=== PATIENT | female | born 1990 | race Hispanic/Latino ===

== ENCOUNTER 2020-03-07 22:53 | Emergency (ER) | payer OTHER ==
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
[2020-03-08] MEDS ORDERED: MORPHINE 4 MG/ML SYR ONE (00:03)
[2020-03-08] MEDS ORDERED: ONDANSETRON 4 MG/2 ML VIAL ONE (00:03)
[2020-03-08] MEDS ORDERED: HYDROCODONE/APAP 5/325 MG TAB ONE (00:03)
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
[2020-03-08 01:51] VITALS: TEMP 98.1
[2020-03-08 01:52] VITALS: BP 108/62; O2SAT 95
--- NOTE | 2020-03-08 12:47 | RAD REPORT ---
EXAM DESCRIPTION: RAD - Chest Pa And Lat (2 Views) - 03/08/2020 12:31 am CLINICAL HISTORY: 29 years Female, recent pneumothorax, left clavicle fracture, right rib fract COMPARISON: None. FINDINGS: Small amount of hazy opacity in both lung bases is present. No pneumothorax. There is a sm all right pleural effusion. Cardiomediastinal silhouette is unremarkable. Multiple right-sided rib fractures are demonstrated involving at least ribs one through seven with se veral appearing displaced. There is a subtle acute appearing fracture of the lateral left clavicle. IMPRESSION: 1. No evidence of pneumothorax. 2. Small right pleural effusion. 3. Small amount of hazy opacity in both lung bases which may reflect atelectasis with underlying cont usion or pneumonia not excluded. 4. Multiple right-sided rib fractures and left clavicular fracture. Electronically signed by: Javier Jordan MD 03/08/2020 1:12 AM FISH ICER Due to temporary technical issues with the PACS/Fluency reporting system, reports are being signed by the in house radiologist without review as a courtesy to ensure prompt reporting. The interpreting r adiologist is fully responsible for the content of the report.
== END 2020-03-08 01:46 | disposition home or self-care (01) ==
LOC: ER 22:53
DX: S22.41XA Multiple fractures of ribs, right side, initial encounter for closed fracture (principal); S42.002A Fracture of unspecified part of left clavicle, initial encounter for closed fracture; S32.9XXA Fracture of unspecified parts of lumbosacral spine and pelvis, initial encounter for closed fracture; S27.0XXA Traumatic pneumothorax, initial encounter; X58.XXXA Exposure to other specified factors, initial encounter
CPT/HCPCS: 71046; 96374; 96375; 99284

== ENCOUNTER 2020-03-16 23:31 | Emergency (ER) | payer OTHER, SELFPAY ==
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
[2020-03-17] MEDS ORDERED: METHYLPREDNISOLONE 125 MG INJ ONE (00:21)
[2020-03-17] MEDS ORDERED: ALBUTEROL 2.5 MG/3 ML NEB SOL ONE (00:21)
[2020-03-17] MEDS ORDERED: IPRATROPIUM BROM 0.5MG/2.5ML ONE (00:21)
[2020-03-17 00:40] LABS: Urine Blood NEGATIVE (NEG); Urine Glucose NEGATIVE (NEG); Urine Protein NEGATIVE (NEG)
[2020-03-17 00:48] LABS: Absolute Lymphocytes (CBC) 3.5 K/uL (0.7-4.9); Basophils % 0.3 % (0-1.3); Hematocrit 36.4 % (36.0-45.0); Lymphocytes % 24.4 % (15.3-44.8); MPV 7.3 fL (7.6-11.3); RBC Red Blood Cell Count 3.97 M/uL (3.86-4.86)
[2020-03-17] MEDS ORDERED: NA CHLORIDE 0.9% 1,000 ML ONE (00:52)
[2020-03-17 01:05] LABS: ALT/SGPT 70 U/L (12-78); AST/SGOT 87 U/L (15-37); Alkaline Phosphatase 199 U/L (45-117); BUN Blood Urea Nitrogen 6 mg/dL (7-18); Bicarbonate 21 mmol/L (21-32); Bilirubin Direct 0.2 mg/dL (0-0.2); Bilirubin Total 0.4 mg/dL (0.2-1.0); Glucose Level 115 mg/dL (74-106); Potassium 3.9 mmol/L (3.5-5.1); Sodium Level 140 mmol/L (136-145)
[2020-03-17 01:09] LABS: Urine Bacteria 20-50 /HPF (<20); Urine Mucus 1+ /HPF (NONE SEEN); Urine RBC <5 /HPF (NONE SEEN)
[2020-03-17] MEDS ORDERED: KETOROLAC 30 MG/ML INJ ONE (01:52)
[2020-03-17] MEDS ORDERED: ONDANSETRON 4 MG/2 ML VIAL ONE (04:37)
[2020-03-17] MEDS ORDERED: MORPHINE 4 MG/ML SYR ONE (04:37)
--- NOTE | 2020-03-17 05:08 | EDPHYS ---
Physician Documentation [facility] Name: Chrissy Rod Age: 29 yrs Sex: Female : 1990 Arrival Date: 03/16/2020 Time: 23:34 Bed 6 Private MD: ED Physician Marcos Gallagher HPI: 03/17 00:03 This 29 yrs old Female presents to ER via Wheelchair with complaints of Asthma mh7 Exacerbation. 00:03 The patient presents to the emergency department with wheezing, Current therapy: None, mh7 that began without any particular precipitating event, the patient was reported to have audible wheezing, SOB, Pre-hospital care: none, Ran out of inhaler. Onset: The symptoms/episode began/occurred today, 4 hour(s) ago. Modifying factors: The symptoms are alleviated by nothing, the symptoms are aggravated by nothing. Associated signs and symptoms: Pertinent negatives: chest pain, choking, fever, headache, nausea, palpitations, rash, vomiting. Severity of symptoms: At their worst the symptoms were moderate today, in the emergency department the symptoms are unchanged. The patient has experienced similar episodes in the past, multiple times. The patient has been recently seen at the [facility], last week. 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 - Social history:: Smoking status: Patient denies any tobacco usage or history of. ROS: 00:03 Constitutional: Negative for fever, chills, and weight loss, Eyes: Negative for injury, mh7 pain, redness, and discharge. 00:03 Neck: Negative for injury, pain, and swelling, Cardiovascular: Negative for chest pain, palpitations, and edema, Abdomen/GI: Negative for abdominal pain, nausea, vomiting, diarrhea, and constipation, Back: Negative for injury and pain, : Negative for injury, bleeding, discharge, and swelling, MS/Extremity: Negative for injury and deformity, Skin: Negative for injury, rash, and discoloration, Neuro: Negative for headache, weakness, numbness, tingling, and seizure, Psych: Negative for depression, anxiety, suicide ideation, homicidal ideation, and hallucinations, Allergy/Immunology: Negative for hives, rash, and allergies, Endocrine: Negative for neck swelling, polydipsia, polyuria, polyphagia, and marked weight changes, Hematologic/Lymphatic: Negative for swollen nodes, abnormal bleeding, and unusual bruising. 00:03 ENT: Positive for rhinorrhea. Exam: 00:03 Head/Face: Normocephalic, atraumatic. Eyes: Pupils equal round and reactive to light, mh7 extra-ocular motions intact. Lids and lashes normal. Conjunctiva and sclera are non-icteric and not injected. Cornea within normal limits. Periorbital areas with no swelling, redness, or edema. Neck: Trachea midline, no thyromegaly or masses palpated, and no cervical lymphadenopathy. Supple, full range of motion without nuchal rigidity, or vertebral point tenderness. No Meningismus. Chest/axilla: Normal chest wall appearance and motion. Nontender with no deformity. No lesions are appreciated. 00:03 Abdomen/GI: Soft, non-tender, with normal bowel sounds. No distension or tympany. No guarding or rebound. No evidence of tenderness throughout. Back: No spinal tenderness. No costovertebral tenderness. Full range of motion. Skin: Warm, dry with normal turgor. Normal color with no rashes, no lesions, and no evidence of cellulitis. MS/ Extremity: Pulses equal, no cyanosis. Neurovascular intact. Full, normal range of motion. Neuro: Awake and alert, GCS 15, oriented to person, place, time, and situation. Cranial nerves II-XII grossly intact. Motor strength 5/5 in all extremities. Sensory grossly intact. Cerebellar exam normal. Normal gait. Psych: Awake, alert, with orientation to person, place and time. Behavior, mood, and affect are within normal limits. 00:03 Constitutional: The patient appears in no acute distress, alert, awake, uncomfortable. 00:03 Cardiovascular: Rate: tachycardic, Rhythm: regular, Pulses: no pulse deficits are appreciated, Heart sounds: normal, normal S1and S2, Edema: is not appreciated, JVD: is not appreciated. 00:03 Respiratory: the patient does not display signs of respiratory distress, Respirations: prolonged exhalation, that is mild, Breath sounds: rhonchi, that are mild, are scattered, wheezing: expiratory that is mild, is scattered, Respiratory rate: 20 Vital Signs: 03/16 23:59 BP 126 / 81; Pulse 136; Resp 20; Temp 99.1(O); Pulse Ox 98% on R/A; Weight 81.65 kg lp1 (R); Height 5 ft. 0 in. (152.40 cm); 03/17 01:00 BP 126 / 89; Pulse 130; Resp 20; Pulse Ox 95% ; rr5 01:41 BP 121 / 66; Pulse 122; Resp 19; Pulse Ox 92% ; rr5 02:35 BP 101 / 58; Pulse 115; Resp 16; Pulse Ox 99% ; rr5 03:30 BP 115 / 62; Pulse 118; Resp 15; Pulse Ox 98% on R/A; rr5 04:30 BP 119 / 78; Pulse 120; Resp 17; Pulse Ox 98% ; rr5 05:22 BP 122 / 75; Pulse 111; Resp 15; Pulse Ox 98% ; rr5 03/16 23:59 Body Mass Index 35.15 (81.65 kg, 152.40 cm) lp1 MDM: 05:05 Differential diagnosis: acute asthma, exercise-induced asthma, reactive airway. Data [facility] reviewed: vital signs, nurses notes, old medical records, lab test result(s), CBC, electrolytes, urinalysis, EKG, radiologic studies, CT scan, plain films. Data interpreted: Pulse oximetry: on room air is 98 %. Interpretation: normal. Counseling: I had a detailed discussion with the patient and/or guardian regarding: the historical points, exam findings, and any diagnostic results supporting the discharge/admit diagnosis, lab results, radiology results, the need for outpatient follow up, to return to the emergency department if symptoms worsen or persist or if there are any questions or concerns that arise at home. Response to treatment: the patient's symptoms have resolved after treatment, the patient's blood pressure is in an acceptable range, mental status has returned to baseline, the patient no longer shows bradycardia, the patient is not short of breath, the patient is not tachycardic, the patient's pain is gone, the patient's temperature has normalized. 05:08 Patient medically screened. mh7 03/17 00:00 Order name: CBC with Diff; Complete Time: 01:03 [facility] 03/17 00:00 Order name: Basic Metabolic Panel; Complete Time: 01:34 [facility] 03/17 00:00 Order name: LFT's; Complete Time: 01:34 [facility] 03/17 00:00 Order name: Influenza Screen (a \T\ B); Complete Time: 01:34 [facility] 03/17 00:34 Order name: Urine Microscopic Only; Complete Time: 01:34 [facility] 03/17 00:34 Order name: Urine Dipstick--Ancillary (enter results); Complete Time: 01:03 [facility] 03/17 00:00 Order name: Chest Single View XRAY [facility] 03/17 00:34 Order name: Urine --Ancillary (enter results); Complete Time: 01:03 [facility] 03/17 01:10 Order name: Urine Culture [facility] 03/17 01:34 Order name: UDS [facility] 03/17 02:20 Order name: D-Dimer; Complete Time: 02:59 [facility] 03/17 03:00 Order name: CT Chest For PE Angio [facility] 03/17 00:00 Order name: Urine Dipstick-Ancillary (obtain specimen); Complete Time: 00:33 [facility] 03/17 00:00 Order name: Urine Test (obtain specimen); Complete Time: 00:33 [facility] 03/17 00:00 Order name: Saline Lock; Complete Time: 00:34 [facility] 03/17 02:20 Order name: EKG - Nurse/Tech; Complete Time: 02:34 7 Administered Medications: 00:42 Drug: SOLU-Medrol 125 mg Route: IVP; Site: left forearm; rr5 01:40 Follow up: Response: No adverse reaction rr5 00:43 Drug: Albuterol - atroVENT (3:1) (2.5 mg - 0.5 mg) 3 ml Route: Nebulizer; rr5 01:40 Follow up: Response: No adverse reaction rr5 00:43 Drug: NS 0.9% 1000 ml Route: IV; Rate: 1000 ml; Site: left forearm; rr5 02:05 Follow up: Response: No adverse reaction; IV Status: Completed infusion; IV Intake: rr5 1000ml 01:39 Drug: TORadol 30 mg Route: IVP; Site: left forearm; rr5 02:30 Follow up: Response: No adverse reaction; Marked relief of symptoms; Pain is decreased rr5 04:23 Drug: Zofran (Ondansetron) 4 mg Route: IVP; Site: left forearm; rr5 05:22 Follow up: Response: No adverse reaction rr5 04:25 Drug: morphine 4 mg {Note: rass 0.} Route: IVP; Site: left forearm; rr5 05:20 Follow up: Response: No adverse reaction; Pain is decreased; RASS: Alert and Calm (0) rr5 Disposition: 03/17/20 05:08 Discharged to Home. Impression: Asthma Exacerbation, Rib Fractures. - Condition is Stable. - Discharge Instructions: Asthma, Adult, [id number], Rib Fracture, [id number]. - Prescriptions for Prednisone 20 mg Oral Tablet - take 2 tablet by ORAL route once daily for 5 days; 10 tablet. Albuterol Sulfate 90 mcg/actuation - inhale 1-2 puff by INHALATION route every 4-6 hours; 1 Inhaler. - Medication Reconciliation Form, Thank You Letter, Antibiotic Education, Prescription Opioid Use form. - Follow up: Private Physician; When: 1 - 2 days; Reason: Worsening of condition, Recheck today's complaints, Continuance of care, Re-evaluation by your physician. Follow up: Tl Tejeda MD; When: 1 - 2 days; Reason: Worsening of condition, Recheck today's complaints. - Problem is an acute exacerbation. - Symptoms have improved. Signatures: Dispatcher [employer] EDMS Daisy Saldivar RN RN lp1 Eduardo Serrano RN RN rr5 Marcos Gallagher MD MD 7 Corrections: (The following items were deleted from the chart) 05:23 05:08 03/17/2020 05:08 Discharged to Home. Impression: Asthma Exacerbation; Rib rr5 Fractures. Condition is Stable. Forms are Medication Reconciliation Form, Thank You Letter, Antibiotic Education, Prescription Opioid Use. Follow up: Private Physician; When: 1 - 2 days; Reason: Worsening of condition, Recheck today's complaints, Continuance of care, Re-evaluation by your physician. Follow up: Tl Tejeda; When: 1 - 2 days; Reason: Worsening of condition, Recheck today's complaints. Problem is an acute exacerbation. Symptoms have improved. mh7
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
[2020-03-17 05:36] VITALS: TEMP 99.1
[2020-03-17 05:41] VITALS: O2SAT 98
[2020-03-17 05:44] VITALS: BP 122/75
--- NOTE | 2020-03-17 17:27 | RAD REPORT ---
EXAM DESCRIPTION: RAD - Chest Single View - 03/17/2020 1:03 am CLINICAL HISTORY: SOB COMPARISON: 03/08/2020 FINDINGS: Single frontal radiograph view of the chest. Cardiomediastinal silhouette: Normal size and contour. Lungs: Patchy right basilar opacities. No pneumothorax. Bones: Redemonstrated distal left clavicular fracture. Redemonstrated right rib fractures. Upper abdomen: No abnormality identified. IMPRESSION: 1. Persistent patchy right basilar opacity. No pneumothorax identified. 2. Redemonstrated right rib fractures and distal left clavicular fracture. Electronically signed by: Gerald Barros 03/17/2020 1:31 AM PANEL FLOW MACHINE OPERATOR Due to temporary technical issues with the PACS/Fluency reporting system, reports are being signed by the in house radiologists without review as a courtesy to insure prompt reporting. The interpreting radiologist is fully responsible for the content of the report.
--- NOTE | 2020-03-17 17:29 | RAD REPORT ---
EXAM DESCRIPTION: CT - Chest For Pe Angio - 03/17/2020 6:40 am CLINICAL HISTORY: SOB COMPARISON: None Available. TECHNIQUE: CTA of the chest obtained following the uncomplicated intravenous administration of iodin ated contrast. 3-D/MIP reformatted images of the chest available for evaluation. FINDINGS: Chest: Pulmonary arteries: Contrast bolus is adequate.No filling defects identified in the pulmonary arterie s to suggest pulmonary embolus. Respiratory motion artifact. Suboptimal evaluation of the segmental a nd subsegmental pulmonary arterial branches due to respiratory motion artifact. Thyroid: No abnormalities of the visualized thyroid. Great Vessels: Great vessels have normal anatomic configuration. Thoracic Aorta: No abnormalities of the thoracic aorta identified. Heart: No cardiomegaly, significant pericardial effusion, or coronary artery atherosclerosis Lymph Nodes: No enlarged mediastinal lymph nodes identified. Esophagus: No abnormalities of the esophagus identified. Other: No additional findings. Lungs: Minimal bilateral dependent atelectasis. Pleura: Rounded pleural-based opacities at the lateral aspect of the right lung likely representing a component of pulmonary contusion. Trachea/Airways: No abnormalities of the visualized trachea or airways. Bones: Fractures of the first through ninth right ribs. Fracture of the distal left clavicle no left rib fractures. The scapula are intact. No acute abnormality of the vertebral bodies. Upper Abdomen: Limited images of the upper abdomen demonstrate no definite abnormalities of visualize d portions of the gallbladder, pancreas, spleen, adrenal glands, or kidneys. Decreased density of t he liver. IMPRESSION: 1. No central pulmonary embolus identified. 2. Fractures of the right first through ninth ribs. 3. Lobulated rounded pleural-based opacities at the lateral aspect of the right lung are likely postt raumatic and may be related to contusion. Given rounded configuration follow-up CT in 6-12 weeks afte r resolution to exclude other causes of rounded pleural-based opacity. 4. Mild bilateral dependent atelectasis. 5. Nondisplaced distal left clavicle fracture partially visualized. 6. Hepatic steatosis. This exam was performed according to our departmental dose-optimization program, which includes autom ated exposure control, adjustment of the mA and/or kV according to patient size and/or use of iterati ve reconstruction technique. Electronically signed by: Gerald Barros 03/17/2020 4:09 AM MASONRY INSTRUCTOR Due to temporary technical issues with the PACS/Fluency reporting system, reports are being signed by the in house radiologists without review as a courtesy to insure prompt reporting. The interpreting radiologist is fully responsible for the content of the report.
== END 2020-03-17 05:23 | disposition home or self-care (01) ==
LOC: ER 23:31
DX: J45.901 Unspecified asthma with (acute) exacerbation (principal); S22.41XA Multiple fractures of ribs, right side, initial encounter for closed fracture
CPT/HCPCS: 36415; 71045; 71275; 80048; 80076; 81003; 81015; 81025; 85025; 85379; 87086; 87088; 87804; 93005; 96361; 96374; 96375; 99285; J2405; J2930; J7030

== ENCOUNTER 2023-06-02 12:15 | Emergency (ER) | payer OTHER, SELFPAY ==
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
[2023-06-02 13:01] LABS: Absolute Basophils 0.1 K/uL (0-0.5); Absolute Eosinophils 0.8 K/uL (0-0.5); Absolute Lymphocytes (CBC) 5.5 K/uL (0.7-4.9); Absolute Monocytes 0.6 K/uL (0.1-1.3); Basophils % 0.8 % (0-1.3); Eosinophils % 5.5 % (0-4.4); Hematocrit 33.9 % (36.0-45.0); Hemoglobin 10.9 g/dL (12.0-15.0); Lymphocytes % 39.6 % (15.3-44.8); MCH 28.4 pg (27.0-35.0); MCV 88.7 fL (80-100); MPV 7.9 fL (7.6-11.3); Neutrophils % 50.1 % (41.7-73.7); Platelets 502 thou/uL (152-406); RBC Red Blood Cell Count 3.83 M/uL (3.86-4.86); Red Cell Distribution Width 16.2 % (12.1-15.2)
[2023-06-02 13:23] LABS: ALT/SGPT 131 U/L (13-56); AST/SGOT 320 U/L (15-37); Albumin 3.5 g/dL (3.4-5.0); Albumin/Globulin Ratio 0.7 (1.1-1.8); Alkaline Phosphatase 182 U/L (45-117); Anion Gap 14.1 mEq/L (5.0-15.0); Bicarbonate 23 mEq/L (21-32); Bilirubin Direct 0.1 mg/dL (0-0.2); Bilirubin Indirect, Calculated 0.2 mg/dL (0.2-0.8); Bilirubin Total 0.3 mg/dL (0.2-1.0); Globulin 5.3 g/dL (2.3-3.5); Glomerular Filtration Rate 105 ml/min (=/>90); Glucose Level 176 mg/dL (74-106); Potassium 3.1 mEq/L (3.5-5.1); Protein, Total 8.8 g/dL (6.4-8.2); Sodium Level 139 mEq/L (136-145)
[2023-06-02 13:24] LABS: BUN Blood Urea Nitrogen < 3 mg/dL (7-18)
[2023-06-02 13:37] LABS: Barbiturates NEGATIVE (NEGATIVE); Benzodiazepines NEGATIVE (NEGATIVE); Cocaine NEGATIVE (NEGATIVE); METHAMPHETAM NEGATIVE (NEGATIVE); Methadone NEGATIVE (NEGATIVE); Opiates NEGATIVE (NEGATIVE); Phencyclidine NEGATIVE (NEGATIVE); THC Cannibis POSITIVE (NEGATIVE)
--- NOTE | 2023-06-02 14:11 | RAD REPORT ---
EXAM DESCRIPTION: Filomena Single View06/02/2023 1:51 pm CLINICAL HISTORY: hypoxia COMPARISON: 2020 FINDINGS: The lungs appear clear of acute infiltrate. The heart is normal size IMPRESSION: No acute abnormalities displayed
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
--- NOTE | 2023-06-02 16:15 | EDPHYS ---
Physician Documentation [facility] Name: Chrissy Rod Age: 32 yrs Sex: Female : 1990 Arrival Date: 06/02/2023 Time: 12:15 Bed 3 Private MD: ED Physician Thaddeus Grey HPI: 06/01 12:50 This 32 yrs old Female presents to ER via EMS with complaints of Fentanyl ms3 overdose. 12:50 32-year-old female with past medical history of asthma presents to the emergency id3 department via [facility] for fentanyl overdose. EMS was called as patient was vomiting after drinking beer. While EMS was in route patient became unresponsive and patient's friend did 2 minutes of CPR. On police arrival Narcan was administered with improvement of patient's respiratory status. On EMS arrival patient's oxygen saturation was 47% and 0.5 mg Narcan was administered. While obtaining IV access patient became alert and oriented. Patient states she snorted fentanyl for the first time. Patient is complaining of 8/10 chest pain. Patient denies any alleviating or inciting factors. Historical: - Allergies: 12:23 No Known Allergies; rs5 - PMHx: 12:23 Asthma; rs5 - PSHx: 12:23 None; rs5 - Immunization history:: Adult Immunizations up to date. - Infectious Disease History:: Denies. - Social history:: Smoking status: Patient denies any tobacco usage or history of. ROS: 12:50 Constitutional: Negative for fever, and chills. Neck: Negative for injury, pain, and ms3 swelling, 12:50 Abdomen/GI: Negative for abdominal pain, nausea, vomiting, diarrhea, and constipation, MS/Extremity: Negative for injury and deformity, Skin: Negative for injury, rash, and discoloration, 12:50 Cardiovascular: Positive for chest pain, Exam: 12:50 Constitutional: This is a well developed, well nourished patient who is awake, alert, ms3 and in no acute distress. Head/Face: Normocephalic, atraumatic. Neck: Trachea midline, no cervical lymphadenopathy. Supple, full range of motion without nuchal rigidity, or vertebral point tenderness. No Meningismus. Chest/axilla: Anterior chest tender to palpation Cardiovascular: Regular rate and rhythm with a normal S1 and S2. No gallops, murmurs, or rubs. Normal PMI, no JVD. No pulse deficits. Respiratory: Lungs have equal breath sounds bilaterally, clear to auscultation and percussion. No rales, rhonchi or wheezes noted. No increased work of breathing, no retractions or nasal flaring. Abdomen/GI: Soft, non-tender, with normal bowel sounds. No distension or tympany. No guarding or rebound. No evidence of tenderness throughout. 13:58 ECG was reviewed by the Attending Physician. ms3 Vital Signs: 12:19 BP 120 / 64; Pulse 70; Resp 17; Pulse Ox 96% on 4 lpm NC; rs5 12:35 BP 120 / 64; Pulse 84; Resp 18; Pulse Ox 98% on 2 lpm NC; Pain 0/10; ld2 14:26 BP 112 / 74; Pulse 110; Resp 18; Pulse Ox 98% on R/A; ph 15:14 BP 97 / 64; Pulse 109; Resp 18 S; Pulse Ox 96% on R/A; as6 16:25 BP 113 / 71; Pulse 90; Resp 19 S; Pulse Ox 99% on R/A; as6 12:35 Pain Scale: Adult ld2 [place] Coma Score: 12:35 Eye Response: spontaneous(4). Motor Response: obeys commands(6). Verbal Response: ld2 oriented(5). Total: 15. MDM: 12:20 Patient medically screened. ms3 12:50 Differential diagnosis: Ingestion/exposure to Fentanyl. ms3 16:18 Data reviewed: vital signs, nurses notes, lab test result(s), EKG, radiologic studies, ms3 and as a result, I will discharge patient. 16:19 Consideration of Admission/Observation Escalation of care including ms3 admission/observation considered. Discussed observation with patient and she declines observation at this time. Discussed with patient she may return at any time to continue her care.. Independent interpretation of the following test(s) in the Emergency Department X-Ray: My interpretation is CXR image reviewed does not reveal PNA or edema. 16:21 Historians other than the Patient: EMS: [facility]. Care significantly affected ms3 by the following chronic conditions: Asthma. Counseling: I had a detailed discussion with the patient and/or guardian regarding the historical points, exam findings, and any diagnostic results supporting the discharge/admit diagnosis, lab results, radiology results, the need for outpatient follow up, to return to the emergency department if symptoms worsen or persist or if there are any questions or concerns that arise at home. Response to treatment: the patient's symptoms have markedly improved after treatment. Refusal of service: The patient/guardian displays adequate decision making capability and despite a detailed discussion of alternatives, benefits, risks, and consequences refuses: Admission to the hospital for further work-up and treatment. ED course: Discussed labs, imaging with patient. Patient to follow-up with primary care physician in 1 to 2 days. Patient understands and agrees with plan. All questions were answered. Return precautions discussed include worsening symptoms, or any other concerns. On reevaluation patient is alert and oriented x 4, in no apparent distress, nontoxic-appearing, speaking full sentences. Discussed observation with patient and patient declines at this time. Discussed with patient she may return at any time for hospitalization. Return precautions discussed include worsening symptoms, or any other concerns.. 06/01 12:21 Order name: Acetaminophen; Complete Time: 14:06/01 12:21 Order name: BMP; Complete Time: 14:06/01 12:21 Order name: CBC with Diff; Complete Time: 14:06/01 12:21 Order name: Ethanol; Complete Time: 14:06/01 12:21 Order name: Hepatic Function; Complete Time: 14:06/01 12:21 Order name: Protime (+inr) 06/01 12:21 Order name: Ptt, Activated 06/01 12:21 Order name: Salicylate; Complete Time: 14:06/01 12:21 Order name: Urine Drug Screen; Complete Time: 14:06/01 12:48 Order name: CXR XRAY; Complete Time: 14:16 06/01 12:21 Order name: EKG; Complete Time: 12:22 06/01 12:21 Order name: EKG - Nurse/Tech; Complete Time: 12:22 06/01 12:21 Order name: IV Saline Lock; Complete Time: 12:36 06/01 12:21 Order name: Labs collected and sent; Complete Time: 12:52 06/01 12:21 Order name: O2 Per Protocol; Complete Time: 12:36 ms3 06/01 12:21 Order name: O2 Sat Monitoring; Complete Time: 12:36 ms3 06/01 12:21 Order name: Suicide Screening ([place]); Complete Time: 12:52 ms3 EC:58 Rate is 91 beats/min. Rhythm is regular. QRS [place] is Normal. [place] interval is normal. QRS ms3 interval is normal. Clinical impression: Normal ECG. Interpreted by me. Reviewed by me. Administered Medications: No medications were administered Disposition Summary: 06/02/23 16:14 Discharge Ordered Notes: Location: Home ms3 Condition: Stable ms3 Diagnosis - Opioid Overdose ms3 - Cannabis abuse ms3 - Hypokalemia ms3 - Anemia, unspecified ms3 - Alcohol abuse with intoxication ms3 Followup: ms3 - With: Manjinder Rader DO - When: 1 - 2 days - Reason: Recheck today's complaints Discharge Instructions: - Discharge Summary Sheet ms3 - Anemia ms3 - Potassium Content of Foods ms3 - Hypokalemia ms3 Forms: - Medication Reconciliation Form ms3 - Antibiotic Education ms3 - Prescription Opioid Use ms3 - Patient Portal Instructions ms3 - Leadership Thank You Letter ms3 Prescriptions: - Narcan 4 mg/actuation Nasal spray, non-aerosol - spray 1 spray INTRANASAL route every 2 minutes as needed for opioid overdose; ms3 spray 1 dose into ONE nostril; alternate nostrils w each dose until help arrives; 1 unit; Refills: 0, Product Selection Permitted Signatures: Dispatcher [employer] EDMS Thaddeus Grey DO DO ms3 Landon Solorzano, RN RN rs5 Corrections: (The following items were deleted from the chart) 12:22 12:22 ACETAMINOPHEN+C.LAB.BRZ ordered. EDMS EDMS 12:22 12:22 BASIC METABOLIC PANEL+C.LAB.BRZ ordered. EDMS EDMS 12:22 12:22 CBC+H.LAB.BRZ ordered. EDMS EDMS 12:22 12:22 ETHANOL+C.LAB.BRZ ordered. EDMS EDMS 12:22 12:22 HEPATIC FUNCTION+C.LAB.BRZ ordered. EDMS EDMS 12:22 12:22 PROTIME (+INR)+COAG.LAB.BRZ ordered. EDMS EDMS 12:22 12:22 PTT, ACTIVATED+COAG.LAB.BRZ ordered. EDMS EDMS 12: SALICYLATE+C.LAB.BRZ ordered. EDMS EDMS 12: URINE DRUG SCREEN+UC.LAB.BRZ ordered. EDMS EDMS 12:48 12:48 Chest Single View+RAD.RAD.BRZ ordered. EDMS EDMS
[2023-06-02 16:49] VITALS: BP 113/71; O2SAT 99
[2023-06-02 21:37] LABS: PT Prothrombin Time 12.1 SECONDS (9.5-12.5)
== END 2023-06-02 16:27 | disposition home or self-care (01) ==
LOC: ER 12:15
DX: T40.2X1A Poisoning by other opioids, accidental (unintentional), initial encounter (principal); F12.10 Cannabis abuse, uncomplicated; F10.129 Alcohol abuse with intoxication, unspecified; E87.6 Hypokalemia; D64.9 Anemia, unspecified
CPT/HCPCS: 36415; 71045; 80048; 80076; 80143; 80179; 80307; 82077; 85025; 85610; 85730; 93005